=== PATIENT | male | born 1995 | race Caucasian/White ===

== ENCOUNTER 2024-05-19 18:16 | Emergency (ER) | payer SELFPAY ==
[2024-05-19] MEDS ORDERED: KETOROLAC 30 MG/ML INJ ONE (19:13)
[2024-05-19] MEDS ORDERED: dexAMETHasone 10 MG/ML VIAL ONE (19:13)
--- NOTE | 2024-05-19 19:30 | RAD REPORT ---
EXAM DESCRIPTION: RAD - Shoulder Left 2 View - 05/19/2024 7:23 pm CLINICAL HISTORY: PAIN COMPARISON: No comparisons FINDINGS: No acute fracture or dislocation is seen. Small bony fragment adjacent to the adjacent to the acromion likely chronic.
--- NOTE | 2024-05-19 21:05 | EDPHYS ---
Physician Documentation [facility] Name: Fred Crawford Age: 29 yrs Sex: Male : 1995 Arrival Date: 05/19/2024 Time: 18:16 Bed 10 Private MD: ED Physician Evelyn Rubin HPI: 05/19 19:20 This 29 yrs old Male presents to ER via Ambulatory with complaints of Arm Problem. cp 19:20 The patient or guardian complains of pain, that is acute. The complaints affect the cp left shoulder. 19:20 Context: resulted from unknown cause. cp 19:20 Onset: The symptoms/episode began/occurred yesterday, and became worse today. Modifying cp factors: the symptoms are aggravated by movement. Associated signs and symptoms: Pertinent positives: pain. Historical: - Allergies: 18:54 No Known Allergies; nj1 - PMHx: 18:54 None; nj1 - Immunization history:: Client reports receiving the 2nd dose of the Covid vaccine. - Infectious Disease History:: Denies. - Social history:: Smoking status: Reported history of juuling and/or vaping. ROS: 19:25 MS/extremity: Positive for decreased range of motion, pain, of the left shoulder, cp radiating pain down left arm, Negative for injury or acute deformity, 19:25 Constitutional: Negative for body aches, chills, fever, poor PO intake, cp 19:25 Neck: Negative for pain with movement, pain at rest, stiffness, 19:25 Cardiovascular: Negative for chest pain, palpitations, 19:25 Respiratory: Negative for cough, shortness of breath, wheezing, 19:25 Back: Negative for pain at rest, pain with movement, 19:25 All other systems are negative, Exam: 19:30 Constitutional: The patient appears in no acute distress, alert, awake, cp non-diaphoretic, non-toxic, well developed, well nourished, obese, uncomfortable, 19:30 Head/Face: Normocephalic, atraumatic. cp 19:30 Neck: C-spine: vertebral tenderness, is not appreciated, crepitus, is not appreciated, ROM/movement: is normal, is supple, without pain, no range of motions limitations, 19:30 Chest/axilla: Inspection: normal, Palpation: is normal, no crepitus, no tenderness, 19:30 Cardiovascular: Rate: normal, Rhythm: regular, Pulses: Pulses are 2+ in left radial artery. 19:30 Respiratory: the patient does not display signs of respiratory distress, Respirations: normal, no use of accessory muscles, no retractions, labored breathing, is not present, Breath sounds: are clear throughout, no decreased breath sounds, no stridor, no wheezing, 19:30 Abdomen/GI: Exam negative for discomfort, distension, guarding, Inspection: abdomen appears normal, 19:30 Back: pain, is absent, ROM is normal, 19:30 Musculoskeletal/extremity: Extremities: grossly normal except: noted in the left shoulder: decreased ROM, pain, There is no evidence of deformity, ROM: limited passive range of motion due to pain, in the left shoulder, the left hand and left arm Sensation intact. Vital Signs: 18:51 BP 143 / 94; Pulse 98; Resp 18; Temp 99; Pulse Ox 100% ; Weight 117.93 kg; Height 5 ft. nj1 6 in. ; Pain 10/10; 18:51 Body Mass Index 41.96 (117.93 kg, 167.64 cm) nj1 18:51 Pain Scale: Adult nj1 MDM: 18:59 Patient medically screened. 19:30 Differential diagnosis: dislocation, closed fracture, tendonitis, sprain, strain. cp 21:05 Data reviewed: vital signs, nurses notes, radiologic studies, plain films, and as a cp result, I will discharge patient. 21:05 I considered the following discharge prescriptions or medication management in the emergency department Medications were administered in the Emergency Department. See MAR. Counseling: I had a detailed discussion with the patient and/or guardian regarding the historical points, exam findings, and any diagnostic results supporting the discharge/admit diagnosis, radiology results, the need for outpatient follow up, a family practitioner, to return to the emergency department if symptoms worsen or persist or if there are any questions or concerns that arise at home. Response to treatment: the patient's symptoms have mildly improved after treatment, and as a result, I will discharge patient. 05/19 19:06 Order name: XRAY Shoulder LEFT 2 view; Complete Time: 20:14 cp 05/19 20:14 Interpretation: Report reviewed. Administered Medications: 19:21 Drug: Ketorolac IM 60 mg IM once Route: IM; Site: left gluteus; cm10 21:21 Follow up: Response: No adverse reaction cm10 19:21 Drug: Dexamethasone IM 10 mg IM once Route: IM; Site: right gluteus; cm10 21:21 Follow up: Response: No adverse reaction cm10 Disposition Summary: 05/19/24 21:05 Discharge Ordered Notes: Location: Home cp Problem: new cp Symptoms: have improved cp Condition: Stable cp Diagnosis - Pain in left shoulder cp Followup: cp - With: Godfrey Valadez MD - When: 1 week - Reason: Recheck today's complaints Discharge Instructions: - Discharge Summary Sheet cp - Shoulder Pain cp - Shoulder Range of Motion Exercises cp Forms: - Medication Reconciliation Form cp - Antibiotic Education cp - Prescription Opioid Use cp - Patient Portal Instructions cp - Leadership Thank You Letter cp Prescriptions: - Cyclobenzaprine 10 mg Oral Tablet - take 1 tablet ORAL route every 8 hours As needed; 30 tablet; Refills: 0, cp Product Selection Permitted - Diclofenac Sodium 75 mg Oral Tablet Sustained Release - take 1 tablet ORAL route 2 times per day; 30 tablet; Refills: 0, Product cp Selection Permitted Signatures: Dispatcher [employer] Martinez Mari PA PA cp Thao Garcia RN RN nj1 Evi Bolanos RN RN cm10
--- NOTE | 2024-05-19 21:05 | ER ---
Nurse's Notes [facility] Name: Fred Crawford Age: 29 yrs Sex: Male : 1995 Arrival Date: 05/19/2024 Time: 18:16 Bed 10 Private MD: Diagnosis: Pain in left shoulder Presentation: 05/19 18:51 Chief complaint: Patient states: Left arm pain since Thursday, denies injury, states nj1 he is unable to move his arm, can only wiggle his fingers. Coronavirus screen: Vaccine status: Patient reports receiving the 2nd dose of the covid vaccine. Ebola Screen: Patient denies travel to an Ebola-affected area in the 21 days before illness onset. Initial Sepsis Screen: Does the patient meet any 2 criteria? HR > 90 bpm. No. Patient's initial sepsis screen is negative. Does the patient have a suspected source of infection? No. Patient's initial sepsis screen is negative. Risk Assessment: Do you want to hurt yourself or someone else? Patient reports no desire to harm self or others. Onset of symptoms was May 18, 2024. 18:51 Method Of Arrival: Ambulatory [facility] 18:51 Acuity: ALEX 3 nj1 Historical: - Allergies: 18:54 No Known Allergies; nj1 - PMHx: 18:54 None; nj1 - Immunization history:: Client reports receiving the 2nd dose of the Covid vaccine. - Infectious Disease History:: Denies. - Social history:: Smoking status: Reported history of juuling and/or vaping. Screenin:43 [facility] ED Fall Risk Assessment (Adult) History of falling in the last 3 months, cm10 including since admission No falls in past 3 months (0 pts) Confusion or Disorientation No (0 pts) Intoxicated or Sedated No (0 pts) Impaired Gait No (0 pts) Mobility Assist Device Used No (0 pt) Altered Elimination No (0 pt) Score/Fall Risk Level 0 - 2 = Low Risk Oriented to surroundings, Maintained a safe environment, Hourly rounding (assess needs \T\ fall precautionary measures) done. Abuse screen: Denies threats or abuse. Denies injuries from another. Nutritional screening: No deficits noted. Tuberculosis screening: No symptoms or risk factors identified. Assessment: 19:20 General: Appears in no apparent distress. uncomfortable, Behavior is calm, cooperative. cm10 Pain: Complains of pain in Left shoulder. Neuro: No deficits noted. Level of Consciousness is awake, alert, obeys commands, Oriented to person, place, time, situation, Appropriate for age. Cardiovascular: No deficits noted. Patient's skin is warm and dry. Respiratory: No deficits noted. Airway is patent Respiratory effort is even, unlabored, Respiratory pattern is regular, symmetrical, Not auscultated. Musculoskeletal: Reports pain in Left shoulder since a couple hours ago. Vital Signs: 18:51 BP 143 / 94; Pulse 98; Resp 18; Temp 99; Pulse Ox 100% ; Weight 117.93 kg; Height 5 ft. nj1 6 in. ; Pain 10/10; 18:51 Body Mass Index 41.96 (117.93 kg, 167.64 cm) pa1 18:51 Pain Scale: Adult [facility] ED Course: 18:20 Patient arrived in ED. mr 18:24 Martinez Rojas PA is PHCP. cp 18:24 Evelyn Rubin MD is Attending Physician. cp 18:54 Triage completed. nj1 18:54 Arm band placed on right wrist. nj1 18:57 Evi Bolanos, CLAU is Primary Nurse. cm10 19:24 XRAY Shoulder LEFT 2 view In Process Unspecified. EDMS 19:44 Patient has correct armband on for positive identification. Bed in low position. Call cm10 light in reach. Provided Education on: ER process and procedures. 21:04 Godfrey Valadez MD is Referral Physician. cp 21:21 No provider procedures requiring assistance completed. Patient did not have IV access cm10 during this emergency room visit. Administered Medications: 19:21 Drug: Ketorolac IM 60 mg IM once Route: IM; Site: left gluteus; cm10 21:21 Follow up: Response: No adverse reaction cm10 19:21 Drug: Dexamethasone IM 10 mg IM once Route: IM; Site: right gluteus; cm10 21:21 Follow up: Response: No adverse reaction cm10 Medication: 19:43 VIS not applicable for this client. cm10 Outcome: 21:05 Discharge ordered by . cp 21:21 Discharged to home ambulatory, cm10 21:21 Condition: good 21:21 Discharge instructions given to patient, Instructed on discharge instructions, follow up and referral plans. medication usage, Demonstrated understanding of instructions, follow-up care, medications, Prescriptions given X 2, 21:21 Patient left the ED. cm10 Signatures: Dispatcher [employer] EDMS Katy Garza, Reg Reg Martinez Bruno PA PA cp Jaco, Norma, RN RN nj1 Evi Bolanos RN RN cm10
[2024-05-19 21:28] VITALS: BP 143/94; TEMP 99; O2SAT 100
== END 2024-05-19 21:21 | disposition home or self-care (01) ==
LOC: ER 18:16
DX: M25.512 Pain in left shoulder (principal)
CPT/HCPCS: 96372; 99284; J1100